=== PATIENT | female | born 1985 | race Caucasian/White ===

== ENCOUNTER 2024-11-30 13:25 | Outpatient (CLI) | payer MEDICAID, SELFPAY ==
--- NOTE | 2024-11-30 06:00 | DI.RAD_ITS ---
Exam(s) XR PAIN CLINIC LUMBAR SP 2V EXAM: XR PAIN CLINIC LUMBAR SP 2V CLINICAL HISTORY: Dx: Lumbar Spondylosis. TECHNIQUE: Fluoroscopy was provided for the referring physician for guidance with performing pain clinic injection procedure. COMPARISON: No exams were available for comparison FINDINGS: Please see procedure note for details. Fluoro time: 19.5 seconds RADIATION DOSE DELIVERED: bonifacio Cardoso=11.6 mGy
[2024-11-30 12:33] VITALS: BP 132/80; PULSE 81; RESP 18; TEMP 36.4; O2SAT 97
--- NOTE | 2024-11-30 14:00 | PDOC.PAIN_ITS ---
Date of service: 11/30/24 Time of Service: 14:20 Pain Managment Procedure Note Procedure Note Procedure Note: Lumbar Medial Branch Block ? Location: Bilateral Medial Branches ? Levels: L3,4,5? (L4-5, L5-S1 FACET) ? Pre-procedure Diagnosis: M47.817 Spondylosis without myelopathy or radiculopathy, lumbosacral region M47.816 Spondylosis without myelopathy or radiculopathy, lumbar region ? Post-procedure Diagnosis:? The same as above ? Sedation: NONE? Estimated blood loss:? less than 2 cc ? Surgeon:? Shen Payton MD COMMENT: Positive Kemps test with degenerative changes facet arthropathy in the lumbar spine ? Procedure Detail:? The procedure and potential risks were explained to the patient and informed written consent was obtained. The patient was escorted to the procedure room and placed in the prone position. Pillows were utilized for proper positioning and comfort.? Time out was performed in procedure room with nursing staff confirming the patient's identity, procedure to be performed, allergies, and any blood thinning or anti-platelet medications. The patient's lower back was prepped with chlorhexidine and draped in a sterile fashion. Sterile technique was maintained throughout the procedure.? Sterile gloves were used, a face mask was worn, and new single dose vials of all medications were used with the top being swabbed with alcohol and given time to dry prior to wit hdrawal of medication.? A left AND right-sided oblique fluoroscopic view was obtained, with visualization of the: ?RIGHT and LEFT L3,4 and DORSAL RAMUS L5 AT SACRAL ALA ? junction of the transverse process and superior articular process. Lidocaine 1% was used to anesthetize the skin. A 22-gauge Quincke needle was advanced along the superior margin of the transverse process and lateral to the articular process.? It was directed inferiorly and medially so that the tip struck the junction of the base of the transverse process and the superior articular process. The needle was then walked over the superior aspect of the transverse process and advanced slightly along the course of the L3,4,5 medial branch nerves. Proper placement was verified in A/P, oblique and lateral views under fluoroscopy. At this location, following negative aspiration, 0.5cc 0.5% bupivacaine was injected.? The patient tolerated the procedure well and was transported to the recovery area for observation and discharge instructions. Permanent images saved and recorded. Follow-up:? The patient will return in 2 weeks for confirmatory LMBBs if they? meet the criteria from today's procedure lasting for at least 2 hours.? COMMENT:Pain went from 4 /10 to 1/10. Before the patient left patient had greater than 70% pain relief. Coding Conscious Sedation used for procedure: No CPT Codes: LMBB (includes Fluoro) Lumbar/Sacral, single lvl *BILATERAL* - [id number] ([id number]~G5) 50 - BILATERAL PROCEDURE LMBB (includes Fluoro) Lumbar/Sacral, 2nd lvl - 43857 ([id number] ~G) LT - LEFT SIDE, RT - RIGHT SIDE Additional Codes: Date of Service (54811) Date of service: 11/30/24 Diagnoses: M47.817 Spondylosis without myelopathy or radiculopathy, lumbosacral region M47.816 Spondylosis without myelopathy or radiculopathy, lumbar region
[2024-11-30 14:01] VITALS: PULSE 85; O2SAT 95
[2024-11-30 14:10] VITALS: PULSE 82; O2SAT 96
[2024-11-30] MEDS: Bupivacaine 0.5% Pres-Free 10 ML VIAL IJ (14:26)
[2024-11-30] MEDS: Nerve Block Tray 1 EACH MC (14:26)
== END 2024-11-30 13:26 | disposition home or self-care (01) ==
PROVIDERS: PCP Nurse Practitioner Family; Visit Provider Anesthesiology Pain Medicine
DX: M47.817 Spondylosis without myelopathy or radiculopathy, lumbosacral region (principal); M47.816 Spondylosis without myelopathy or radiculopathy, lumbar region
CPT/HCPCS: 64493; 64494; 72100; J0665

== ENCOUNTER 2024-12-14 09:30 | Outpatient (CLI) | payer MEDICAID, SELFPAY ==
--- NOTE | 2024-12-14 06:00 | DI.RAD_ITS ---
Exam(s) XR PAIN CLINIC LUMBAR SP 2V EXAM: XR PAIN CLINIC LUMBAR SP 2V CLINICAL HISTORY: Dx: Lumbar Spondylosis. TECHNIQUE: Fluoroscopy was provided for the referring physician for guidance with performing pain clinic injection procedure. COMPARISON: No exams were available for comparison FINDINGS: Please see procedure note for details. Fluoro time: 24.4 seconds RADIATION DOSE DELIVERED: bonifacio Cardoso=18.4 mGy
[2024-12-14 09:42] VITALS: BP 153/99; PULSE 85; RESP 18; TEMP 36.7; O2SAT 96
--- NOTE | 2024-12-14 09:46 | PDOC.PAIN ---
Date of service: 12/14/24 Time of Service: 10:27 Pain Managment Procedure Note Procedure Note Procedure Note: LUMBAR MEDIAL BRANCH BLOCK #2 Location: Bilateral Medial Branches ? Levels: L3,4,5? (L4-5, L5-S1 FACET) ? Pre-procedure Diagnosis: M47.817 Spondylosis without myelopathy or radiculopathy, lumbosacral region M47.816 Spondylosis without myelopathy or radiculopathy, lumbar region ? Post-procedure Diagnosis:? The same as above ? Sedation: NONE? Estimated blood loss:? less than 2 ml ? Surgeon:? Shen Payton MD COMMENT: Patient had? GREATER THAN 80 % relief after the first medial branch block for greater than the duration of the local anesthetic.? Positive Kemps test with degenerative changes facet arthropathy in the lumbar spine PRE PROCEDURE PAIN SCORE: 5/10 ? Procedure Detail:? The procedure and potential risks were explained to the patient and informed written consent was obtained. The patient was escorted to the procedure room and placed in the prone position. Pillows were utilized for proper positioning and comfort.? Time out was performed in procedure room with nursing staff confirming the patient's identity, procedure to be performed, allergies, and any blood thinning or anti-platelet medications. The patient's lower back was prepped with chlorhexidine and draped in a sterile fashion. Sterile technique was maintained throughout the procedure.? Sterile gloves were used, a face mask was worn, and new single dose vials of all medications were used with the top being swabbed with alcohol and given time to dry prior to withdrawal of medication.? A left and right-sided oblique fluoroscopic view was obtained, with visualization of the: ?RIGHT and LEFT L3,4 and DORSAL RAMUS L5 AT SACRAL ALA ? junction of the transverse process and superior articular process. Lidocaine 1% was used to anesthetize the skin. A 5 22-gauge Quincke needle was advanced along the superior margin of the transverse process and lateral to the articular process.? It was directed inferiorly and medially so that the tip struck the junction of the base of the transverse process and the superior articular process. The needle was then walked over the superior aspect of the transverse process and advanced slightly along the course of the L3,4,5 medial branch nerves. Proper placement was verified in A/P, oblique and lateral views under fluoroscopy. At this location, following negative aspiration, 0.5ml 2% lidocaine was injected.? The patient tolerated the procedure well and was discharged home with instructions. Permanent images saved and recorded. Follow-up:?? Will plan to proceed with lumbar medial branch RFA if the patient gets good relief from today's procedure lasting for at least 2 hours. COMMENT:Pain went from 5/10 to /10. Before the patient left patient had 80% pain relief. Coding Conscious Sedation used for procedure: No CPT Codes: LMBB (includes Fluoro) Lumbar/Sacral, single lvl *BILATERAL* - [id number] ([id number]~G5) 50 - BILATERAL PROCEDURE LMBB (includes Fluoro) Lumbar/Sacral, 2nd lvl - 61266 (9435477 ~G) LT - LEFT SIDE, RT - RIGHT SIDE Additional Codes: Date of Service (52665) Date of service: 12/14/24 Diagnoses: M47.817 Spondylosis without myelopathy or radiculopathy, lumbosacral region M47.816 Spondylosis without myelopathy or radiculopathy, lumbar region
[2024-12-14 10:08] VITALS: PULSE 72; O2SAT 94
[2024-12-14 10:10] VITALS: PULSE 78; O2SAT 95
[2024-12-14 10:20] VITALS: PULSE 74; O2SAT 96
[2024-12-14] MEDS: Nerve Block Tray 1 EACH MC (10:29)
[2024-12-14] MEDS: Lidocaine 2% Pres-Free 5 ML VIAL IJ (10:29)
== END 2024-12-14 09:31 | disposition home or self-care (01) ==
LOC: PC 09:32
PROVIDERS: PCP Registered Nurse; Visit Provider Anesthesiology Pain Medicine
DX: M47.816 Spondylosis without myelopathy or radiculopathy, lumbar region (principal); M47.817 Spondylosis without myelopathy or radiculopathy, lumbosacral region
CPT/HCPCS: 64493; 64494; 72100

== ENCOUNTER 2024-12-28 07:17 | Outpatient (CLI) | payer MEDICAID, SELFPAY ==
[2024-12-28] VITALS (14 sets, daily range): BP systolic 133–151; BP diastolic 90–113; PULSE 59–76; RESP 13–22; TEMP 37; O2SAT 94–98
--- NOTE | 2024-12-28 06:00 | DI.RAD_ITS ---
Exam(s) XR PAIN CLINIC LUMBAR SP 2V EXAM: XR PAIN CLINIC LUMBAR SP 2V CLINICAL HISTORY: Dx: Lumbar Spondylosis TECHNIQUE: 2D and realtime digital imaging was performed. Radiologist not present. CONTRAST MATERIAL: None. COMPARISON: No exams were available for comparison FINDINGS: Fluoroscopy was provided for pain management therapy. Lumbar spine radiofrequency ablation therapy Please refer to procedure report or details. Radiation Exposure Index: Ka,r=46.85 mGy IMPRESSION: As above. RADIATION DOSE DELIVERED:
--- NOTE | 2024-12-28 08:48 | PDOC.PAIN_ITS ---
Date of service: 12/28/24 Time of Service: 10:01 Pain Managment Procedure Note Procedure Note Procedure Note: Lumbar Medial Branch COOLED Radiofrequency Ablation COMMENT: Patient had greater than 80 % relief after 2 medial branch blocks . Location: Bilateral L3, and L4 medial Branches and dorsal ramus of L5 (L4-5, and L5-S1 joints) Pre-procedure Diagnosis: M47.817 Spondylosis without myelopathy or radiculopathy, lumbosacral region Post-procedure Diagnosis: The same as above Sedation: Intravenous line started 1mg of intravenous midazolam and fentanyl 50 mcg were administered. An independent trained observer monitored the patient for the duration of the procedure. Estimated blood loss: less than 2 ml Surgeon: Shen Payton MD Procedure Detail: The procedure and potential risks were explained to the patient and informed written consent was obtained. The patient was escorted to the procedure room and placed in the prone position. Pillows were utilized for proper positioning and comfort. Time out was performed in the procedure room with nursing staff confirming the patient's identity, procedure to be performed, allergies, and any blood thinning or anti-platelet medications. The patient's lower back was prepped with ChloraPrep and draped in a sterile fashion. Sterile technique was maintained throughout the procedure. Sterile gloves were used, a face mask was worn, and new single dose vials of all medications were used with the top being swabbed with alcohol and given time to dry prior to withdrawal of medication. A left AND right-sided oblique fluoroscopic view was obtained, with visualization of the L4 junction of the transverse process and superior articular process. 2% lidocaine was used to anesthetize the skin. With fluoroscopic guidance, an 17 gauge 4mm active tip RF cannula was advanced to the superior margin of the transverse process and lateral to the superior articular process. It was directed inferiorly and medially so that the tip struck the junction of the base of the transverse process and the superior articular process. The needle was then slightly advanced along the course of the L3 medial branch nerve. Proper placement was verified with oblique, AP, and lateral fluoroscopic views. Sensory tested with good response less than 1V. Motor testing was performed and was negative at 2V except for expected multifidus activation. A similar procedure was also performed at the ipsilateral L4 medial branch nerves and the dorsal ramus of L5 with negative motor testing at 2V except for expected multifidus activation. 1 ml of 2% lidocaine was injected th rough each needle tip to anesthetize the medial branch nerves. After waiting for the local anesthetic to take effect, each nerve was then ablated at 60 degrees Celsius for 150 seconds. This was repeated on the opposite side at the same levels. The patient was monitored for any severe pain or radicular pain during the ablation and reported none. The patient tolerated the procedure well, and was discharged in stable condition. Permanent images were saved and recorded. PAIN: PRE PROCEDURE POST PROCEDURE Plan: F/U PRN COMMENT: Repeat prn if 6 months relief of 50% Coding Conscious Sedation used for procedure: Yes CPT Codes: Moderate sedation; First 15 min - 77431 (51539) Moderate sedation; add. 15 increments - 80445 (36516) Single Facet Joint, Lumbar/Sacral *BILATERAL* - 469453R ([id number]~G) 50 - BILATERAL PROCEDURE Single Facet Joint, Lumbar/Sacral cool each add'l - [id number] ([id number]~G) RT - RIGHT SIDE, LT - LEFT SIDE Additional Codes: Date of Service () Diagnoses: M47.817 Spondylosis without myelopathy or radiculopathy, lumbosacral region
[2024-12-28] MEDS: Midazolam 2 MG/2 ML VIAL IVP (09:05)
[2024-12-28] MEDS: fentaNYL 100 MCG/2 ML VIAL IVP (09:05)
[2024-12-28] MEDS: Nerve Block Tray 1 EACH MC (09:29)
[2024-12-28] MEDS: Lidocaine 2% Multi-Dose 20 ML VIAL IJ (09:45)
[2024-12-28] MEDS: Lactated Ringers 500 ML 80 ML IV (09:46)
--- NOTE | 2024-12-28 10:02 | PDOC.PAIN2 ---
History of Present Illness History of Present Illness History of Present Illness: Ms. Pepe is here today for lumbar RFA with moderate sedation. Pre-procedure assessment was made and no contraindications to proceed were identified. Patient's cardiovascular status and respiratory status were monitored and stable throughout the course of the procedure. Patient was able to respond purposefully to verbal commands. There were no interventions required to maintain a patent airway and spontaneous ventilation was adequate. At the termination of the procedure patient's vital signs were stable. The patient was alert and oriented x 3. The intravenous line was discontinued and patient discharged home with designated ambulance driver along with post-procedure instructions. Medications used: Midazolam 1milligrams Fentanyl 50micrograms Review of Systems Medications/Allergies Allergies Allergy/AdvReac Type Severity Reaction Status Date / Time Penicillins Allergy Severe Swelling/Ed Unverified 12/28/24 08:07 suzette bupropion Allergy Unknown Unknown Unverified 12/28/24 08:07 Medications: Current Medications Fentanyl (Fentanyl 100 Mcg/2 Ml Vial) 0 mcg IVP DIRECTED [facility] Last Admin: 12/28/24 09:05 Dose: 50 mcg Ringer's Solution () 1,000 mls @ 30 mls/hr IV INFUSION [facility] Ringer's Solution () 500 mls @ 80 mls/hr IV INFUSION [facility] Stop: 12/28/24 23:59 Last Admin: 12/28/24 09:46 Dose: 80 mls/hr Lidocaine HCl (Lidocaine 2% Multi-Dose 20 Ml Vial) 0 ml IJ DIRECTED [facility] Last Admin: 12/28/24 09:45 Dose: 16 ml Midazolam HCl (Midazolam 2 Mg/2 Ml Vial) 0 mg IVP DIRECTED [facility] Last Admin: 12/28/24 09:05 Dose: 1 mg Miscellaneous (Nerve Block Tray) 1 each MC DIRECTED [facility] Last Admin: 12/28/24 09:29 Dose: 1 each Objective Exam Vitals and I&O: Vital Signs Temperature 37.0 C 12/28/24 08:07 Pulse 68 12/28/24 09:45 Pulse 67 12/28/24 09:36 Respiratory Rate 15 12/28/24 09:36 Blood Pressure 148/109 H 12/28/24 09:47 Blood Pressure Mean 122 12/28/24 09:47 Pulse Oximetry 98 12/28/24 09:36 Respiratory End-tidal CO2 41 10/28/25 09:36 Oxygen Delivery Method Room Air 12/28/24 09:47 Oxygen Flow Rate 0 12/28/24 09:47 Ambulatory Orders Medication Instructions Recorded ibuprofen 200 mg tablet 1 tab PO PRN PRN 06/02/14 albuterol sulfate 90 mcg/actuation 2 puff inhalation Q6H PRN 09/07/24 aerosol inhaler (Ventolin HFA) loperamide 2 mg capsule 2 mg PO Q6H PRN 09/07/24 meclizine 25 mg tablet 25 mg PO DAILY PRN 09/07/24 ondansetron 4 mg disintegrating 4 mg PO Q8H 09/07/24 tablet solifenacin 5 mg tablet 5 mg PO DAILY 09/07/24 valacyclovir 500 mg tablet 500 mg PO DAILY 09/07/24 metoprolol tartrate 50 1 tab PO DAILY 12/28/24 mg-hydrochlorothiazide 25 mg tablet
== END 2024-12-28 07:18 | disposition home or self-care (01) ==
LOC: PC 07:17
PROVIDERS: PCP Registered Nurse; Visit Provider Anesthesiology Pain Medicine
DX: M47.817 Spondylosis without myelopathy or radiculopathy, lumbosacral region (principal)
CPT/HCPCS: 64635; 64636; 72100; J2003; J2250; J3010